=== PATIENT | male | born 1945 | race Caucasian/White ===

== ENCOUNTER 2025-05-29 14:48 | Emergency (ER) | payer MEDICARE, BC ==
[~2025-05-29] VITALS: Ht 188 cm; Wt 114.0 kg
--- NOTE | ~2025-05-29 | EKG ---
[facility] [address] [place], [place] [address] Draft EK completed, results pending confirmation PATIENT NAME: DARREN CASTRO LEE ANN Electrocardiogram DATE OF : 47 PHYSICIAN: PRELIMINARY REPORT #: [id number] REPORT IS CONFIDENTIAL AND NOT TO BE RELEASED WITHOUT AUTHORIZATION
[2025-05-29] MEDS ORDERED: CEFPODOXIME PR200 MG PO (15:09)
[2025-05-29] MEDS ORDERED: EZETIMIBE SIMV PO (15:10)
[2025-05-29] MEDS ORDERED: GABAPENTIN300 MG PO (15:10)
[2025-05-29] MEDS ORDERED: FARXIGA10 MG PO (15:10)
[2025-05-29] MEDS ORDERED: ELIQUIS5 MG PO (15:10)
[2025-05-29] MEDS ORDERED: DESVENLAFAXINE100 M3 PO (15:10)
[2025-05-29] MEDS ORDERED: XULTOPHY 100 UNI3 ML SQ (15:11)
[2025-05-29] MEDS ORDERED: LOSARTAN POTASS25 MG PO (15:11)
[2025-05-29] MEDS ORDERED: METFORMIN HCL1000 MG PO (15:11)
[2025-05-29] MEDS ORDERED: GLUCAGON EMERGEN1 MG INJ (15:11)
[2025-05-29] MEDS ORDERED: ICOSAPENT ETHYL1 GM PO (15:11)
[2025-05-29] MEDS ORDERED: METOPROLOL SUCC50 MG PO (15:11)
[2025-05-29] MEDS ORDERED: DAPAGLIFLOZIN10 MG PO (15:11)
[2025-05-29 15:42] LABS: MCH 30.8 PG (25.7-32.2); MCHC 33.2 g/dL (32.3-36.5); MCV 92.8 fL (79.0-92.2); RBC 4.74 M/uL (4.63-6.08)
[2025-05-29 15:54] LABS: ALT (SGPT) 71.0 U/L (14-59); AST (SGOT) 54.0 U/L (15-37); GLOMERULAR FILTRATION RATE,EST 82.0 mL/min (>60); PROTEIN, TOTAL 7.3 g/dL (6.4-8.2); UREA NITROGEN 18.0 mg/dL (7-18)
[2025-05-29 15:56] LABS: EOSINOPHILS, MANUAL DIFF 8; LYMPHOCYTES, MANUAL DIFF 65; MONOCYTES, MANUAL DIFF 5; NEUTROPHILS, MANUAL DIFF 22
[2025-05-29] MEDS ORDERED: ALBUTEROL/IPRATROPIUM 3 ML NEB INH ONE (16:45)
[2025-05-29 19:32] VITALS: BP 120/74
== END 2025-05-29 19:55 | disposition short-term general hospital (02) ==
LOC: ED 14:48
PROVIDERS: Emergency Medicine
DX: J18.9 Pneumonia, unspecified organism (principal); R09.02 Hypoxemia; E78.5 Hyperlipidemia, unspecified; I25.2 Old myocardial infarction; E11.9 Type 2 diabetes mellitus without complications; M19.90 Unspecified osteoarthritis, unspecified site; Z79.84 Long term (current) use of oral hypoglycemic drugs; Z79.4 Long term (current) use of insulin; Z79.899 Other long term (current) drug therapy; Z88.0 Allergy status to penicillin
CPT/HCPCS: 36415; 71045; 80053; 83735; 84484; 85025; 93005; 93010; 94640; 94667; 94799; 99285-25

== ENCOUNTER 2025-09-06 05:43 | Inpatient (IN) | payer MEDICARE, BC ==
[~2025-09-06] VITALS: Ht 188 cm; Wt 121.7 kg
[~2025-09-06 05:43] MED LIST: CEFPODOXIME PR200 MG PO; DAPAGLIFLOZIN10 MG PO; DESVENLAFAXINE100 M3 PO; ELIQUIS5 MG PO; EZETIMIBE SIMV PO; FARXIGA10 MG PO; GABAPENTIN300 MG PO; GLUCAGON EMERGEN1 MG INJ; ICOSAPENT ETHYL1 GM PO; LOSARTAN POTASS25 MG PO; METFORMIN HCL1000 MG PO; METOPROLOL SUCC50 MG PO; XULTOPHY 100 UNI3 ML SUB-Q
[2025-09-06] MEDS ORDERED: KETOROLAC TROMETHAMINE 15 MG/ML VIAL IV ONE (06:30)
[2025-09-06 06:34] LABS: BASOPHILS 0.5 % (0.2-1.2); EOSINOPHILS 0.3 % (0.8-7.0); LYMPHOCYTES 25.7 % (21.8-53.1); MCH 31.4 PG (25.7-32.2); MCHC 33.9 g/dL (32.3-36.5); MCV 92.6 fL (79.0-92.2); MONOCYTES 7.4 % (5.3-12.2); NEUTROPHILS 65.8 % (34.0-67.9); RBC 4.71 M/uL (4.63-6.08)
[2025-09-06] MEDS ORDERED: LACTATED RINGER'S 1,000 ML IV ONE (06:45)
[2025-09-06 06:57] LABS: ALT (SGPT) 67.0 U/L (14-59); AST (SGOT) 22.0 U/L (15-37); GLOMERULAR FILTRATION RATE,EST 56.0 mL/min (>60); PROTEIN, TOTAL 6.5 g/dL (6.4-8.2); UREA NITROGEN 17.0 mg/dL (7-18)
[2025-09-06 07:19] LABS: BLOOD/HGB, URINE NEGATIVE (Negative); KETONE, URINE NEGATIVE (Negative); LEUK ESTERASE, URINE NEGATIVE (negative); NITRITE, URINE NEGATIVE (negative)
[2025-09-06 07:22] LABS: LACTIC ACID, BLOOD 3.4 mmol/L (0.4-2.0)
[2025-09-06] MEDS ORDERED: SODIUM CHLORIDE 0.9% 1,000 ML IV ONE (08:00)
[2025-09-06] MEDS ORDERED: SODIUM CHLORIDE 0.9% 500 ML IV PRN (08:15)
[2025-09-06] MEDS ORDERED: SODIUM CHLORIDE 0.9% 1,000 ML IV PRN (08:15)
[2025-09-06] MEDS ORDERED: SODIUM CHLORIDE 0.9% 1,000 ML IV SCH (10:15)
[2025-09-06 12:40] LABS: LACTIC ACID, BLOOD 1.6 mmol/L (0.4-2.0)
[2025-09-06] MEDS ORDERED: GLUCAGON,HUMAN RECOMBINANT 1 MG/ML VIAL SUB-Q PRN (12:45)
[2025-09-06] MEDS ORDERED: DEXTROSE 5% 1,000 ML IV PRN (12:45)
[2025-09-06] MEDS ORDERED: DEXTROSE 50% 50 ML SYR IV PRN ×2 (12:45)
[2025-09-06] MEDS ORDERED: LACTATED RINGER'S 1,000 ML IV SCH (12:45)
[2025-09-06] MEDS ORDERED: IBLOOD GLUCOSE TEST STRIP 1 EA TEST XX PRN (12:45)
[2025-09-06] MEDS ORDERED: ACETAMINOPHEN 325 MG TAB PO PRN (12:45)
[2025-09-06] MEDS ORDERED: GABAPENTIN 300 MG CAP PO SCH (15:00)
[2025-09-06] MEDS ORDERED: TRIAMTERENE-HC1 EAC1 PO (16:14)
--- NOTE | 2025-09-06 16:33 | NUR ---
rn to er to get pt for trsf to room 130, pt extremely [employer] of liquid stool from gurney to bed- unaware of need to go to bathroom, skin on backside wnl - pt trsf to bsc to finish, max assist to trsf to bed - unsteady - bed alarm on. pt reports at home he has been weak and had back pain but feels better right now. using his phone to text family. denies needs, oriented to the call light and remote. propellant charge zone assembler assist pt to use adaptive headphones with speakers for hearing and communication.
[2025-09-06 16:40] VITALS: BP 108/65
[2025-09-06 17:00] VITALS: BP 104/57
[2025-09-06] MEDS ORDERED: INSULIN LISPRO 100 UNIT/ML ML SUB-Q SCH (17:00)
[2025-09-06] MEDS ORDERED: IBLOOD GLUCOSE TEST STRIP 1 EA TEST VI SCH (17:00)
--- NOTE | 2025-09-06 17:14 | NUR ---
here in unit, review vitals and pt status.
--- NOTE | 2025-09-06 18:48 | NUR ---
DR SUTHERLAND HERE - NOTIFIED THAT THIS RN HAD SPOKE ON PHONE WITH PT NEICE RASHAWN CLAUDE - SHE NOTED THAT PT HAS UP COMING APPT WITH DR BAILEY 09/23 FOR POSSIBLE LEUKEMIA. NOTES THAT PT HAS HAD LONG STANDING LOOSE STOOLS WITH COLITIS AND CHRONIC PANCREATITIS/TYPE 2 DM. AND DECLINES WORK UP WITH DR. SIMONS (FEBRUARY WORKS THERE). PT HAS KNOWN CHRONIC BACK PAIN AND JUST RECENTLY NOTED TO BE WEAK IN LEGS, INCREASING BACK PAIN, INCONTENENTS. FEBRUARY WILL BE BRINGING IN HIS HOME CPAP AND HIS ADVANCE DIRECTIVE NOTING DNR/DNI. PRINTED PT EDUCATION TO PT WHILE WAS IN ROOM DISCUSSING THE CT SCAN AND MRI RESULTS TODAY. NO ABCESS OR ACUTE INJURY NOTED TO SPINE - ONLY CHRONIC DISK AND ARTHRITIS TYPE. PT ATE 100% OF REG DIET, AND RATES PAIN IMPROVED 5/10 AND AT HOME WAS 10/10 PAIN WITH WEAKNESS.
--- NOTE | 2025-09-06 20:00 | NUR ---
FEBRUARY(NIECE) INTO UNIT TO BRING PATIENT HIS PHONE LICENSING MANAGER AND CPAP. R.T., PATIENT ADVANCE DIRECTIVE BROUGHT IN NOT A TRUE POLST. INTO PATIENT ROOM, PATIENT ALERT AND ORIENTED.
[2025-09-06 20:30] VITALS: BP 106/61
[2025-09-06] MEDS ORDERED: APIXABAN 5 MG TAB PO SCH (21:00)
[2025-09-06] MEDS ORDERED: MELATONIN 3 MG TAB PO PRN (21:00)
[2025-09-06 22:29] VITALS: BP 114/56
--- NOTE | 2025-09-06 22:30 | NUR ---
PATIENT RESTING QUIELTY IN BED, EYES CLOSED, HOME CPAP ON, RESPIRATORY RATE 16/MIN, 94% OXYGEN SATURATION, NO SUPPLEMENTAL OXYGEN REQUIRED. PATIENT HAS VOIDED 300ML YELLOW URINE IN URINAL.
[2025-09-07] VITALS (13 sets, daily range): BP systolic 100–159; BP diastolic 52–103
--- NOTE | 2025-09-07 00:26 | NUR ---
PATIENT RESTING QUIETLY IN BED, EYES CLOSED RESPIRATION REGULAR AT 16/MIN. ALERT TO RN AT BEDSIDE TOUCHING HIS LEFT ARM TO ASSESS IV SITEWITH INFUSION. PATIENT REPORTS PAIN IS OK, HE REPORTS NO NEEDS AT THIS TIME, ASSESSMENT COMPLETE.
--- NOTE | 2025-09-07 05:03 | NUR ---
PATIENT RESTING IN BED, EYES CLOSED RESPIRATION RATE 14/MIN. NO DISTRESS NOTED, PATIENT ALERT TO TOUCH ON ARM. LAB IS IN PATIENT ROOM AND THIS RN INTO ROOM TO COMPLETE AM ASSESSMENT. PATIENT REPORTS NO NEEDS AND PAIN IS TOLERABLE AT THIS TIME. HE REPORTS HE DOES NOT NEED TO HAVE A BM, HE REPORTS HE IS AWARE WHEN HE NEEDS TO. HE REPORTS HE WILL USE THE URINAL ONCE STAFF OUT OF ROOM.
[2025-09-07 05:14] LABS: BASOPHILS 0.7 % (0.2-1.2); EOSINOPHILS 3.0 % (0.8-7.0); LYMPHOCYTES 54.6 % (21.8-53.1); MCH 30.8 PG (25.7-32.2); MCHC 33.5 g/dL (32.3-36.5); MCV 91.9 fL (79.0-92.2); MONOCYTES 11.2 % (5.3-12.2); NEUTROPHILS 30.4 % (34.0-67.9); RBC 4.09 M/uL (4.63-6.08)
[2025-09-07 05:28] LABS: ALT (SGPT) 39.0 U/L (14-59); AST (SGOT) 28.0 U/L (15-37); GLOMERULAR FILTRATION RATE,EST 94.0 mL/min (>60); PROTEIN, TOTAL 4.9 g/dL (6.4-8.2); UREA NITROGEN 13.0 mg/dL (7-18)
--- NOTE | 2025-09-07 05:57 | NUR ---
PATIENT NOTED TO HAVE SMALL AMOUNT OF BLOOD NOTED ON RIM OF URINAL. ASKED PATIENT IF HE KNEW OF ANY SORES, HE SAID NO, PATIENT AGREES TO ALLOW THIS RN TO ASSESS. NOTED SMALL AREA AT SUPERIOR RIGHT SIDE OF PENIS SHAFT AND ABD AREA HAS SLIGHT RED WITH SMALL PARTICLES OF DRIED BLOOD, NO ACTIVE BLEED, NO OPEN AREA NOTED, PATIENT REPORTS NOT PAINFUL. PATIENT DECLINES TO HAVE CLEAN BRIEFS PLACED AT THIS TIME. HE DID ASK TO HAVE BREAKFAST MODIFIED FROM REGULAR ITEMS LISTED THIS AM, THESE HAS BEEN CALLED TO DIETARY.
--- NOTE | 2025-09-07 06:04 | NUR ---
PATIENT HAS SLEPT WELL OVER SHIFT WITH HOME CPAP IN PLACE, HE HAS BEEN ALERT TO TOUCH OF HIS ARM, PATIENT HAS SEVERE HEARING LOSS, FACILITY DEVICE IN ROOM TO ASSIST WITH COMMUNICATION, WORKING WELL. PATIENT HAS REPORTED PAIN WELL TOLERATED OVER SHIFT. HE HAS VOIDED TWICE IN URINAL AT BEDSIDE. HE IS LOOKING FORWARD TO BREAKFAST.
--- NOTE | 2025-09-07 08:00 | NUR ---
PT FEED BKF AND DID WELL WITH HEARING HEAD AMP. NO C/O'S AT THIS TIME. 09:00 EXPLAINED TO PT THAT HE WILL BE TRANSFERED TO M/S UNIT IN HIS BED. 09:45 PT TRANSFERED TO M/S VIA BED ALL QUESTIONS ANSWERED. ALL PERSONAL ITEMS TAKEN WITH PT.
[2025-09-07] MEDS ORDERED: METOPROLOL SUCCINATE 50 MG TABCR PO SCH (10:38)
[2025-09-07] MEDS ORDERED: PHARMACY RENAL DOSE ADJUSTMENT 1 DOSE MISC PO SCH (12:00)
--- NOTE | 2025-09-07 12:20 | NUR ---
Patient up to restroom then back to chair, SBA with walker, pt ambulates well. Patient denies pain. Ecnouarged patent to call if he has needs, call light within reach.
[2025-09-07] MEDS ORDERED: ADULT ASPIRIN R81 MG PO (13:30)
[2025-09-07] MEDS ORDERED: TYLENOL EXTRA500 MG PO (13:31)
--- NOTE | 2025-09-07 13:33 | NUR ---
MED REC COMPLETE
--- NOTE | 2025-09-07 20:17 | NUR ---
Pt awake, alert and oriented, GRAYLING, using hearing headphone piece. answers appropriately. On room air, lungs exp wheezing at baes. large abd soft, AYO, LBM today. 2 IV sites RAC w IVF infusing w/o problems, and RFA SL patent. dry scaly skin present and multiple bruising over arms. discoloration of lower legs and edematous, non pitting present. ambulated to BRP with 1PA/FWW, toleratewd well. On enteric Contact Isolation Precautions until stool sample for C Diff back. Pleasant and cooperative.
--- NOTE | 2025-09-07 20:32 | NUR ---
PATIENT IS LAYING IN BED. PATIENTS VITAL SIGNS AND I&OS WERE DONE. PATIENT DID ORAL CARE AND GOWN WAS CHANGED. CALL LIGHT IS WITHIN REACH AND NO FURTHER NEEDS AT THIS TIME.
--- NOTE | 2025-09-07 21:47 | NUR ---
pt awake, cooperative, CBG 131, no coverage needed. Medicated with Tylenol per c/o back pain and Melatonin per c/o insomnia. IVF infusing w/o problems. repositions self in bed, Feet elevated .
--- NOTE | 2025-09-07 23:58 | NUR ---
RESTING, EYES CLOSED, ON ROOM AIR, HOB ELEVATED, NO S/SX DISTRESS. CONTINUES ON CONTACT ENTERIC ISOLATION PRECAUTIONS. LEGS ELEVATED
[2025-09-08] VITALS (10 sets, daily range): BP systolic 117–125; BP diastolic 57–73
--- NOTE | 2025-09-08 03:40 | NUR ---
Resting, eyes closed, on room air, no s/sx distress, IVF infusing w/o problems. call light at hands reach
[2025-09-08 05:25] LABS: BASOPHILS 0.8 % (0.2-1.2); EOSINOPHILS 4.5 % (0.8-7.0); LYMPHOCYTES 59.6 % (21.8-53.1); MCH 30.6 PG (25.7-32.2); MCHC 33.2 g/dL (32.3-36.5); MCV 92.3 fL (79.0-92.2); MONOCYTES 11.2 % (5.3-12.2); NEUTROPHILS 23.7 % (34.0-67.9); RBC 4.05 M/uL (4.63-6.08)
[2025-09-08 05:42] LABS: GLOMERULAR FILTRATION RATE,EST 103.0 mL/min (>60); UREA NITROGEN 7.0 mg/dL (7-18)
--- NOTE | 2025-09-08 08:00 | NUR ---
THIS HOE RUNNER IN TO DO BLOOD SUGAR. BLOOD SUGAR DONE AND CHARTED. PATIENT DECLINED GETTING UP TO CHAIR AT THIS TIME, SET UP IN BED FOR BREAKFAST. WHITE BOARD UPDATED. CALL LIGHT IN REACH. NO FURTHER NEEDS AT THIS TIME.
--- NOTE | 2025-09-08 08:10 | NUR ---
PT RESTING EYES CLOSED AT TIME OF SHIFT REPORT, LEFT UNDISTURBED. AWAKE NOW SITTING UP IN BED WATCHING TV EATING BREAKFAST. AGREES HE IS COMFORTABE. FRESH H20 TO BEDSIDE CALL LIGHT IN REACH
--- NOTE | 2025-09-08 08:29 | NUR ---
PATIENT IN BED. SCHEDULED MEDICATIONS ADMINISTERED. CALL LIGHT IN REACH.
[2025-09-08] MEDS ORDERED: POTASSIUM CHLORIDE 10 MEQ TABCR PO ONE (09:00)
[2025-09-08] MEDS ORDERED: LOSARTAN POTASSIUM 25 MG TAB PO SCH (09:00)
--- NOTE | 2025-09-08 09:47 | NUR ---
PATIENT IN BED, ASSESMENT COMPLETE. CALL LIGHT AND PERSONAL BELONGINGS IN REACH OF PATIENT. PATIENT DENIES CONCERNS.
--- NOTE | 2025-09-08 09:48 | NUR ---
DR SUTHERLAND IN TO SEE PT DISCUSSES PLAN GOING FORWARD, ALL QUESTIONS ANSWERED. USES COMMUNICATION DEVICE IT IS VERY EFFECTIVE. PT REMAINS RESTING IN BED AT THIS TIME
--- NOTE | 2025-09-08 11:29 | NUR ---
PATIENT IN BED, CALL LIGHT IN REACH.
--- NOTE | 2025-09-08 12:20 | NUR ---
PATIENT IN BED, SCHEDULED MEDICATIONS ADMINISTERED. LUNCH AT BEDSIDE. CALL LIGHT IN REACH.
--- NOTE | 2025-09-08 13:54 | NUR ---
PATIENT UP TO BATHROOM AND THEN TO CHAIR, SBA FWW. VITALS AND I&O'S DONE AND CHARTED. LINENS CHANGED. CALL LIGHT IN REACH. NO FURTHER NEEDS AT THIS TIME.
--- NOTE | 2025-09-08 14:03 | NUR ---
PT SITTING UP IN THE RECLINER DENIES NEEDS AT THIS TIME. NEEDED ITEMS AND CALL LIGHT IN REACH
--- NOTE | 2025-09-08 14:05 | NUR ---
PATIENT IN CHAIR, CALL LIGHT IN REACH. GROUP THERAPY COUNSELOR IN ROOM. PATIENT DENIES CONCERNS.
--- NOTE | 2025-09-08 15:28 | NUR ---
PATIENT IN CHAIR. SCHEDULED MEDICATIONS ADMINISTERED. CALL LIGHT IN REACH.
--- NOTE | 2025-09-08 17:00 | NUR ---
PT UP TO TOILET ABLE TO VOID THEN RETURNS TO THE CHAIR FOR EVENING MEAL DENIES NEEDS OR DISCOMFORTS. CALL LIGHT IN REACH NEEDED ITEMS AT CHAIRSIDE
--- NOTE | 2025-09-08 17:20 | NUR ---
PATIENT IN CHAIR, CALL LIGHT IN REACH, DINNER AT CHAIR SIDE. SCHEDULED MEDICATIONS ADMINISTERED.
--- NOTE | 2025-09-08 18:01 | NUR ---
THIS ROOF CEMENT AND PAINT MAKER IN ROOM TO DO VITALS, VITALS AND I&O'S DONE AND CHARTED. PATIENT TRANSFERED FROM CHAIR TO BED, SBA FWW. CALL LIGHT IN REACH. NO FURTHER NEEDS AT THIS TIME.
--- NOTE | 2025-09-08 18:08 | NUR ---
RECEIVED CALL FROM PATIENT'S FAMILY MEMBER RE , UPDATED PER PATIENT REQUEST. ANSWERED ALL QUESTIONS, DENIES FURTHER QUESTIONS OR CONCERNS.
--- NOTE | 2025-09-08 19:05 | NUR ---
REPORT RECIEVED FROM LUIGI SHIN. PATIENT RESTING IN BED ON HIS PHONE. PATIENT REQUESTING MELATONIN WITH HIS NIGHT MEDICATIONS. PATIENT WITHOUT FURTHER NEEDS AT THIS TIME. CALL LIGHT AND PERSONAL BELONGINGS ARE WITHIN REACH.
--- NOTE | 2025-09-08 20:25 | NUR ---
PATIENT RESTING IN BED WATCHING TV. PATIENT MEDICATED PER EMAR. PATIENT ASSESSMENT COMPLETED. PATIENT IS ALERT AND ORIENTED. PATIENT DENIES ANY PAIN. IV FLUSHED WITH 10ML OF NS, DRESSING IS INTACT. PATIENT IS WITHOUT FURTHER NEEDS AT THIS TIME. FRESH ICE WATER PROVIDED. CALL LIGHT AND PERSONAL BELONGINGS ARE WITHIN REACH.
--- NOTE | 2025-09-08 22:59 | NUR ---
PATIENT RESTING IN BED WITH HIS EYES CLOSED. CPAP IN PLACE. EVEN AND UNLABORED RESPIRATIONS NOTED. CALL LIGHT AND PERSONAL BELONGINGS ARE WITHIN REACH.
[2025-09-09] VITALS (10 sets, daily range): BP systolic 111–126; BP diastolic 65–87
--- NOTE | 2025-09-09 00:49 | NUR ---
PATIENT RESTING IN BED WITH HOB ELEVATED. PATIENT'S EYES ARE CLOSED. EVEN AND UNLABORED RESPIRATIONS NOTED. PATIENT WITH CPAP ON. CALL LIGHT AND PERSONAL BELONGINGS ARE WITHIN REACH.
--- NOTE | 2025-09-09 01:20 | NUR ---
PATIENT CALLED REQUESTING MORE "SLEEPING PILLS". THIS RN IN ROOM TO LET PATIENT KNOW HE HAD ALREADY RECIEVED THE DOSE OF MELATONIN ORDERED FOR THE NIGHT. HOT TEA AND FRESH ICE WATER PROVIDED. PATIENT WITHOUT FURTHER NEEDS AT THIS TIME. CALL LIGHT AND PERSONAL BELONGINGS ARE WITHIN REACH.
--- NOTE | 2025-09-09 03:40 | NUR ---
PATIENT RESTING IN BED WITH HIS EYES CLOSED. CPAP ON, EVEN AND UNLABORED RESPIRATIONS NOTED. CALL LIGHT AND PERSONAL BELONGINGS ARE WITHIN REACH.
[2025-09-09 05:42] LABS: BASOPHILS 0.8 % (0.2-1.2); EOSINOPHILS 4.8 % (0.8-7.0); LYMPHOCYTES 63.0 % (21.8-53.1); MCH 30.6 PG (25.7-32.2); MCHC 33.1 g/dL (32.3-36.5); MCV 92.6 fL (79.0-92.2); MONOCYTES 8.0 % (5.3-12.2); NEUTROPHILS 23.4 % (34.0-67.9); RBC 4.05 M/uL (4.63-6.08)
--- NOTE | 2025-09-09 05:54 | NUR ---
PT LYING IN BED W/ HOB ELEVATED. VITALS DONE, CALL LIGHT IN REACH.
--- NOTE | 2025-09-09 06:41 | NUR ---
PATIENT RESTING IN BED WITH HIS EYES CLOSED. EVEN AND UNLABORED RESPIRATIONS NOTED. CPAP IN PLACE. CALL LIGHT AND PERSONAL BELONGINGS ARE WITHIN REACH.
--- NOTE | 2025-09-09 07:19 | NUR ---
PT JUST BACK FROM THE TOILET HAD A BM AND WAS ABLE TO VOID. DECLINES THE CHAIR CHOOSING TO SIT IN THE BED. PT DENIES NEED OR DISCOMFORT.
--- NOTE | 2025-09-09 07:36 | NUR ---
REPORT RECEIVED FROM LUIGI CARO. PATIENT IN BED, KIKE MEYERS AT BEDSIDE. CALL LIGHT IN REACH.
[2025-09-09] MEDS ORDERED: INSULIN GLARGINE-YFGN 100 UNIT/ML ML SUB-Q SCH (09:00)
--- NOTE | 2025-09-09 09:06 | NUR ---
PATIENT IN BED. SCHEDULED MEDICATIONS ADMINISTERED, ASSESMENT COMPLETED. CALL LIGHT IN REACH.
--- NOTE | 2025-09-09 09:15 | NUR ---
Spoke with Tj. He states he lives in his home with few steps and rails. His nephew and niece live with him. He states they do everything for him. They complete all house hold chores and assist with dressing after he showers. He uses a cane, walker, and shower chair. Possible SNF placement was discussed in the 8:30 meeting, pt refuses this. Pt would like to go home on dc. Pt denies any financial or safety issues in the home. Home when medically cleared.
--- NOTE | 2025-09-09 10:03 | NUR ---
PT NOT AVAILABLE FOR VISIT. PROVIDED PRAYER.
--- NOTE | 2025-09-09 10:44 | NUR ---
PATIENT IN CHAIR. PATIENT PROVIDED PROTEIN DRINK AT HIS REQUEST. PATIENT DENIES CONCERNS. CALL LIGHT IN REACH.
--- NOTE | 2025-09-09 11:23 | NUR ---
UR CLINICAL REVIEW: 2 MN FOR VERSALUS-PER ASSET PROTECTION OFFICER MEETS INPT FOR SEPSIS SECONDARY TO COLITIES WITH NEED FOR IV ABX, SERIAL LABS AND PAIN CONTROL MEDICARE INPT 09/06/25 @ 1258 ORDER MATCHES REG NO AUTH REQUIRED PER MEDICARE GUIDELINES DISCHARGE TO HOME VS SNF WHEN STABLE
[2025-09-09] MEDS ORDERED: VANCOMYCIN HCL 125 MG CAP PO SCH (11:45)
--- NOTE | 2025-09-09 12:01 | NUR ---
PATIENT IN CHAIR, CALL LIGHT IN REACH.
--- NOTE | 2025-09-09 12:16 | NUR ---
PATIENT IN CHAIR, LUNCH AT SIDE. CALL LIGHT IN REACH. SCHEDULED MEDICATIONS ADMINISTERED.
--- NOTE | 2025-09-09 13:42 | NUR ---
RECEIVED CALL FROM PATIENT'S FAMILY MEMBER RE, APPROVED CONTACT IN CHART. PROVIDED PATIENT UPDATES AND ANSWERED HER QUESTIONS.
--- NOTE | 2025-09-09 14:35 | NUR ---
PATIENT IN CHAIR. SCHEDULED MEDICATION ADMINISTERED, CALL LIGHT IN REACH.
--- NOTE | 2025-09-09 16:20 | NUR ---
PATIENT IN CHAIR. CALL LIGHT IN REACH.
--- NOTE | 2025-09-09 17:41 | NUR ---
PATIENT IN BED, CALL LIGHT IN REACH
--- NOTE | 2025-09-09 19:40 | NUR ---
REPORT RECEIVED FROM DAY SHIFT RN. PT LYING IN BED RESTING WITH EYES CLOSED. RESPIRATIONS EVEN. CALL LIGHT IN REACH.
--- NOTE | 2025-09-09 20:40 | NUR ---
EVENING ASSESSMENT COMPLETE. SCHEDULED MEDS ADMIN PER EMAR. PRN FOR SLEEP GIVEN PER REQUEST. PT REPORTS LOW BACK PAIN. PRN FOR PAIN ADMIN. PT UP TO BR WITH MINIMAL SBA AND FWW TO VOID. GAIT STEADY. BACK TO BED, SAHIL WELL. VS AND I&O OBTAINED. HOME CPAP IN USE. NO FURTHER NEEDS. CALL LIGHT IN REACH. BED ALARM FOR SAFETY.
--- NOTE | 2025-09-09 23:59 | NUR ---
PT RESTING IN BED WITH EYES CLOSED. RESPIRATIONS EVEN. HOME CPAP IN USE. CALL LIGHT IN REACH. BED ALARM FOR SAFETY.
[2025-09-10] VITALS (11 sets, daily range): BP systolic 128–149; BP diastolic 68–88
--- NOTE | 2025-09-10 01:33 | NUR ---
PT IN BED RESTING WITH EYES CLOSED. RESPIRATIONS EVEN. CPAP IN PLACE. CALL LIGHT IN REACH.
--- NOTE | 2025-09-10 03:36 | NUR ---
PT LYING IN BED RESTING WITH EYES CLOSED. RESPIRATIONS EVEN. CALL LIGHT IN REACH.
[2025-09-10 05:22] LABS: BASOPHILS 0.8 % (0.2-1.2); EOSINOPHILS 6.9 % (0.8-7.0); LYMPHOCYTES 63.0 % (21.8-53.1); MCH 31.0 PG (25.7-32.2); MCHC 33.3 g/dL (32.3-36.5); MCV 93.0 fL (79.0-92.2); MONOCYTES 6.9 % (5.3-12.2); NEUTROPHILS 22.2 % (34.0-67.9); RBC 4.29 M/uL (4.63-6.08)
[2025-09-10 05:37] LABS: ALT (SGPT) 38.0 U/L (14-59); AST (SGOT) 24.0 U/L (15-37); GLOMERULAR FILTRATION RATE,EST 98.0 mL/min (>60); PROTEIN, TOTAL 5.3 g/dL (6.4-8.2); UREA NITROGEN 8.0 mg/dL (7-18)
--- NOTE | 2025-09-10 05:37 | NUR ---
LAB IN FOR MORNING DRAW. UP TO BR WITH FWW AND METAL MINER BLASTING ASSIST TO VOID. NO BM'S THIS SHIFT. BACK TO BED, SAHIL WELL. VS AND I&O OBTAINED. COFFEE PROVIDED PER REQUEST. NO FURTHER NEEDS. CALL LIGHT IN REACH.
--- NOTE | 2025-09-10 07:20 | NUR ---
REPORT RECIEVED FROM LUIGI BENTLEY. PATIENT RESTING IN BED ON HIS PHONE. PATIENT DENIES ANY NEEDS AT THIS TIME. CALL LIGHT AND PERSONAL BELONGINGS ARE WITHIN REACH. WHITE BOARD UPDATED.
--- NOTE | 2025-09-10 08:20 | NUR ---
PATIENT MEDICATED PER EMAR. PATIENT UP TO BATHROOM AND BACK TO BED WITHOUT ANY COMPLICATIONS. PATIENT ASSESSMENT COMPLETED. IV FLUSHED WITH 10ML OF NS, DRESSING IS INTACT. VITAL SIGNS TAKEN AND ARE STABLE. PATIENT WITHOUT FURTHER NEEDS AT THIS TIME. CALL LIGHT AND PERSONAL BELONGINGS ARE WITHIIN REACH.
[2025-09-10] MEDS ORDERED: CYANOCOBALAMIN 1,000 MCG TAB PO SCH (09:00)
[2025-09-10] MEDS ORDERED: CEFDINIR 300 MG CAP PO SCH (09:00)
--- NOTE | 2025-09-10 09:25 | NUR ---
Spoke with Tj. He is using the pocket talker as he is [place]. He denies needs. He has changed his mind and does not want to leave today. He denies any needs. Cont. to wait for labs to return.
--- NOTE | 2025-09-10 09:38 | NUR ---
PATIENT MEDICATED PER EMAR. FRESH ICE WATER PROVIDED. PATIENT IS SITTING UP IN HIS CHAIR AND IS WITHOUT FURTHER NEEDS AT THIS TIME. CALL LIGHT AND PERSONAL BELONGINGS ARE WITHIN REACH.
--- NOTE | 2025-09-10 09:58 | NUR ---
DR SUTHERLAND AT BEDSIDE
--- NOTE | 2025-09-10 10:27 | NUR ---
PATIENT SITTING UP IN HIS CHAIR AND IS WITHOUT ANY NEEDS AT THIS TIME. CALL LIGHT AND PERSONAL BELONGINGS ARE WITHIN REACH.
--- NOTE | 2025-09-10 11:50 | NUR ---
PATIENT RESTING IN HIS CHAIR AND IS WITHOUT ANY NEEDS AT THIS TIME. CALL LIGHT AND PERSONAL BELONGINGS ARE WITHIN REACH.
--- NOTE | 2025-09-10 12:35 | NUR ---
PATIENT MEDICATED PER EMAR. PATIENT SITTING UP IN HIS CHAIR ON HIS PHONE. PATIENT DECLINES HIS LUNCH TRAY BUT STATES HE WILL DRINK A CHOCOLATE ENSURE. CHOCOLATE ENSURE AND ICE PROVIDED. PATIENT WITHOUT FURTHER NEEDS AT THIS TIME. CALL LIGHT AND PERSONAL BELONGINGS ARE WITHIN REACH.
--- NOTE | 2025-09-10 13:20 | NUR ---
RAYRAY AARON IN ROOM TAKING PATIENT'S VITAL SIGNS
--- NOTE | 2025-09-10 14:40 | NUR ---
PATIENT SITTING UP IN HIS CHAIR ON HIS PHONE. PATIENT DENIES ANY NEEDS AT THIS TIME. CALL LIGHT AND PERSONAL BELONGINGS ARE WITHIN REACH.
--- NOTE | 2025-09-10 15:28 | NUR ---
PATIENT MEDICATED PER EMAR. PATIENT SITTING UP IN HIS CHAIR AND DENIES ANY NEEDS AT THIS TIME. CALL LIGHT AND PERSONAL BELONGINGS ARE WITHIN REACH.
--- NOTE | 2025-09-10 17:20 | NUR ---
PATIENT MEDICATED PER EMAR. PATIENT VITAL SIGNS COMPLETED. PATIENT'S DINNER TRAY SET UP INFRONT OF HIM. VITAL SIGNS ARE STABLE. PATIENT IS WITHOUT FURTHER NEEDS AT THIS TIME. CALL LIGHT AND PERSONAL BELONGINGS ARE WITHIN REACH.
--- NOTE | 2025-09-10 17:49 | NUR ---
PATIENT UP TO BATHROOM FROM CHAIR THEN TO BED, SBA FWW. I&O'S DONE AND CHARTED. CALL LIGHT IN REACH. NO FURTHER NEEDS AT THIS TIME.
--- NOTE | 2025-09-10 19:25 | NUR ---
REPORT RECEIVED FROM DAY SHIFT RN. PT LYING IN BED ALERT AND ORIENTED. ENSURE PROVIDED PER REQUEST. NO FURTHER NEEDS. WHITE BOARD UPDATED. CALL LIGHT IN REACH.
--- NOTE | 2025-09-10 21:25 | NUR ---
EVENING ASSESSMENT COMPLETE. SCHEDULED MEDS ADMIN PER EMAR. PT REPORTS LOW BACK PAIN. PRN FOR PAIN ADMIN PER EMAR. DENIES ABD PAIN OR NAUSEA. VS AND I&O OBTAINED. ASSISTED TO SET UP HOME CPAP. PT DENIES QUESTIONS OR CONCERNS. CALL LIGHT IN REACH.
--- NOTE | 2025-09-10 23:04 | NUR ---
PT RESTING IN BED WITH EYES CLOSED. RESPIRATIONS EVEN. CALL LIGHT IN REACH.
--- NOTE | 2025-09-11 01:21 | NUR ---
PT IN BED RESTING WITH EYES CLOSED. CPAP IN PLACE. RESPIRATIONS EVEN. CALL LIGHT IN REACH.
--- NOTE | 2025-09-11 03:46 | NUR ---
PT LYING IN BED RESTING WITH EYES CLOSED. CPAP IN PLACE. RESPIRATIONS EVEN. CALL LIGHT IN REACH.
[2025-09-11 05:37] VITALS: BP 125/64
[2025-09-11 05:41] VITALS: BP 125/64
[2025-09-11 05:48] LABS: BASOPHILS 1.1 % (0.2-1.2); EOSINOPHILS 6.7 % (0.8-7.0); LYMPHOCYTES 62.0 % (21.8-53.1); MCH 30.4 PG (25.7-32.2); MCHC 32.9 g/dL (32.3-36.5); MCV 92.4 fL (79.0-92.2); MONOCYTES 6.9 % (5.3-12.2); NEUTROPHILS 23.2 % (34.0-67.9); RBC 4.34 M/uL (4.63-6.08)
--- NOTE | 2025-09-11 05:56 | NUR ---
LAB IN FOR MORNING DRAW. PT UP TO BR WITH MINIMAL SBA TO VOID. GAIT STEADY. AT SINK FOR AM CARES. BACK TO BED, SAHIL WELL. VS AND I&O OBTAINED. COFFEE PROVIDED PER REQUEST. NO FURTHER NEEDS. CALL LIGHT IN REACH.
[2025-09-11 06:00] LABS: GLOMERULAR FILTRATION RATE,EST 98.0 mL/min (>60); UREA NITROGEN 13.0 mg/dL (7-18)
[2025-09-11 08:58] VITALS: BP 120/62
--- NOTE | 2025-09-11 09:15 | NUR ---
Spoke with Tj. He is using the pocket talker. He denies any needs. UPdated he was discussed in 8:30 meeting and may get to go home. Pt wants to leave today if possible. IM letter given. Per pt, his niece will drive him home this afternoon. He denies any needs. He would like to use [facility] as he has used in the past and they are closer. He has a walker at home.
[2025-09-11] MEDS ORDERED: VANCOMYCIN HCL125 MG PO (09:23)
[2025-09-11 09:30] VITALS: BP 120/62
--- NOTE | 2025-09-11 11:16 | NUR ---
Chart faxed to [facility] for PT/OT. Chart also scanned to [facility] asking if they will assign a new Dr. as pt PCP, Loida Hein is leaving. [facility].
--- NOTE | 2025-09-11 11:30 | NUR ---
PT NOT AVAILABLE FOR VISIT. PROVIDED PRAYER.
--- NOTE | 2025-09-11 12:21 | NUR ---
Patient is declining to shower prior to discharge. Patient reports he would like to shower once he is home.
[2025-09-11 13:23] VITALS: BP 123/72
--- NOTE | 2025-09-12 09:38 | NUR ---
PT WAS DISCHARGED YESTERDAY, FAMILY STATES PRESCRIPTION WAS NOT READY AT PHARMACY OR AVAILABLE. [facility] CALLED, VERBAL ORDER FOR VANCO 125MG QID X7 DAYS GIVEN TO PHARMACIST BETSY. ORDER REPEATED BACK TO ME AND VERIFIED.
[2025-09-17 11:27] LABS: ADENOVIRUS F 40/41 Not Detected (Not Detected); ASTROVIRUS Not Detected (Not Detected); C DIFFICILE TOXIN A/B Detected (Not Detected); CAMPYLOBACTER Not Detected (Not Detected); CRYPTOSPORIDIUM Not Detected (Not Detected); CYCLOSPORA CAYETANENSIS Not Detected (Not Detected); ENTAMOEBA HISTOLYTICA Not Detected (Not Detected); ENTEROAGGREGATIVE E COLI Not Detected (Not Detected); ENTEROPATHOGENIC E COLI Not Detected (Not Detected); ENTEROTOXIGENIC E COLI Not Detected (Not Detected); GIARDIA LAMBLIA Not Detected (Not Detected); NOROVIRUS GI/GII Not Detected (Not Detected); PLESIOMONAS SHIGELLOIDES Not Detected (Not Detected); ROTAVIRUS A Not Detected (Not Detected); SALMONELLA Not Detected (Not Detected); SAPOVIRUS Not Detected (Not Detected); SHIGA-TOXIN-PRODUCING E COLI Not Detected (Not Detected); SHIGELLA/ENTEROINVASIVE E COLI Not Detected (Not Detected); VIBRIO Not Detected (Not Detected); VIBRIO CHOLERAE Not Detected (Not Detected); YERSINIA ENTEROCOLITICA Not Detected (Not Detected)
== END 2025-09-11 13:50 | disposition home health service (06) | DRG 871 ==
LOC: ED 05:43 → MS 12:58 → CCU 12:58 → MS 12:58
PROVIDERS: Emergency Medicine; Internal Medicine; ADMIT Student in an Organized Health Care Education/Training Program; ATTEND Internal Medicine
DX: A41.4 Sepsis due to anaerobes (principal); R65.21 Severe sepsis with septic shock; A04.72 Enterocolitis due to Clostridium difficile, not specified as recurrent; E87.20 Acidosis, unspecified; R26.81 Unsteadiness on feet; I25.10 Atherosclerotic heart disease of native coronary artery without angina pectoris; I48.91 Unspecified atrial fibrillation; I10 Essential (primary) hypertension; Z66 Do not resuscitate; D64.9 Anemia, unspecified; E11.65 Type 2 diabetes mellitus with hyperglycemia; D69.6 Thrombocytopenia, unspecified; E78.5 Hyperlipidemia, unspecified; Z79.84 Long term (current) use of oral hypoglycemic drugs; Z79.4 Long term (current) use of insulin; Z88.0 Allergy status to penicillin; Z95.5 Presence of coronary angioplasty implant and graft; Z79.01 Long term (current) use of anticoagulants; I25.2 Old myocardial infarction; Z87.01 Personal history of pneumonia (recurrent)
CPT/HCPCS: 36415; 71045; 72158; 74177; 80048; 80053; 81003; 82607; 83036; 83605; 83735; 83880; 84484; 85025; 87040; 87077; 87186; 87324; 94799; 96361; 96365; 96366; 96367; 96375; 97161; 97165; 97530; 97535; 99285-25; A9270; A9573; A9577; J0696; J1815; J1885; J2185; J7030; J7050; J7121; Q9967